=== PATIENT | male | born 1955 | race Two or more races ===

== ENCOUNTER 2025-04-24 09:45 | Day surgery (SDC) | payer MEDICARE, SELFPAY ==
--- NOTE | 2025-04-21 05:00 | EKG_ITS ---
[facility] Test Date: 2025-04-21 Pat Name: ZEE FARRIS Department: Room: - Gender: Male [employer]: : [id number] Requested By: Arsen Kwan Order Number: [id number] Reading MD: Arsen Kwan Measurements Intervals [place] Rate: 58 P: 53 SD: 201 QRS: -62 QRSD: 111 T: 44 QT: 392 QTc: 388 Interpretive Statements SINUS BRADYCARDIA MARKED LEFT AXIS DEVIATION [QRS AXIS < -30] MODERATE INTRAVENTRICULAR CONDUCTION DELAY [110+ ms QRS DURATION] No previous ECG available for comparison /[email or web address]/[id number]
[2025-04-21 13:24] VITALS: BMI 25.4
[2025-04-21 17:01] LABS: Alanine Aminotransferase 21 U/L (10-49); Albumin, Serum 4.5 gm/dL (3.4-4.8); Albumin/Globulin Ratio 1.7 (1.2-2.2); Alkaline Phosphatase 56 U/L (46-116); Anion Gap 9 (7-16); Aspartate Amino Transferase 24 U/L (0-34); BUN/Creatinine Ratio 18 Ratio (12-20); Bilirubin,Total 0.6 mg/dL (0.3-1.2); Blood Urea Nitrogen 14 mg/dL (9-23); Calcium 8.9 mg/dL (8.3-10.6); Calcium (Corrected) 8.9 mg/dL (8.5-10.1); Carbon Dioxide 28.5 mMol/L (20.0-31.0); Chloride 104 mMol/L (98-107); Creatinine (Component) 0.8 mg/dL (0.6-1.3); Estimated Creatinine Clearance 79.8 mL/min (>60); Globulin 2.6 gm/dL (2.3-3.5); Glucose 109 mg/dL (74-106); Osmolality,Calculated 282 (275-295); Potassium 3.8 mMol/L (3.4-5.1); Sodium 141 mMol/L (136-145); Total Protein 7.1 gm/dL (5.7-8.2); eGFR > 60 See Note
[2025-04-24 10:05] VITALS: BP 124/85; PULSE 68; RESP 17; TEMP 36.6; O2SAT 97; BMI 25.9
[2025-04-24] MEDS: RINGERS LACTATED 500 ML 500 ML 20 ML IV (11:52)
[2025-04-24 12:18] VITALS: BP 84/56; PULSE 68; RESP 16; TEMP 36.8; O2SAT 96
[2025-04-24 12:28] VITALS: BP 103/62; PULSE 70; RESP 15; O2SAT 98
[2025-04-24 12:38] VITALS: BP 124/67; PULSE 63; RESP 12; O2SAT 98
[2025-04-24 12:48] VITALS: BP 106/72; PULSE 64; RESP 12; O2SAT 98
== END 2025-04-24 12:59 | disposition home or self-care (01) ==
PROVIDERS: Anesthesiology; PCP Internal Medicine; Referring Provider Specialist; Visit Provider Specialist
PROC: 0DBE8ZX Excision of Large Intestine, Via Natural or Artificial Opening Endoscopic, Diagnostic (ICD-10-PCS; CPT 45380; principal; 2025-04-24 10:15)
DX: Z12.11 Encounter for screening for malignant neoplasm of colon (principal); D12.6 Benign neoplasm of colon, unspecified; D12.8 Benign neoplasm of rectum; K64.1 Second degree hemorrhoids; K57.30 Diverticulosis of large intestine without perforation or abscess without bleeding; Z01.810 Encounter for preprocedural cardiovascular examination; I10 Essential (primary) hypertension; Z79.899 Other long term (current) drug therapy
CPT/HCPCS: 45385; 36415; 80053; 93005; A4649; J7120